=== PATIENT | male | born 1985 | race African-American/Black ===

== ENCOUNTER 2017-08-14 09:42 | Emergency (ER) | payer SELFPAY ==
[~2017-08-14] VITALS: Ht 177.8 cm; Wt 77.1 kg
[2017-08-14 11:00] VITALS: BP 169/95
[2017-08-14] MEDS ORDERED: KETOROLAC TROMETH 60MG/2ML VIAL IM ONE (11:45)
== END 2017-08-14 12:09 | disposition home or self-care (01) ==
LOC: ER 09:42
DX: S20.222A Contusion of left back wall of thorax, initial encounter (principal); W22.8XXA Striking against or struck by other objects, initial encounter; Y93.89 Activity, other specified; Y99.8 Other external cause status; Y92.89 Other specified places as the place of occurrence of the external cause
CPT/HCPCS: 72110; 96372; 99284; J1885